=== PATIENT | female | born 2000 | race Caucasian/White ===

== ENCOUNTER 2023-05-24 09:05 | Emergency (ER) | payer OTHER, SELFPAY ==
--- NOTE | ~2023-05-24 | XR_ITS ---
EXAMINATION: XR chest 1V portable DATE: 05/24/2023 09:59 INDICATION: Left chest pain. TECHNIQUE: A single frontal view of the chest was obtained. COMPARISON: None. FINDINGS: There is no pneumonia, pleural effusion, or pneumothorax. The heart size is normal. IMPRESSION: 1. No acute cardiopulmonary disease. Reviewed, dictated and finalized at location A. INTEGRATION ARCHITECT
[2023-05-24 09:16] VITALS: BP 132/88; PULSE 83; RESP 18; O2SAT 98
--- NOTE | 2023-05-24 09:16 | ECG_ITS ---
Measurements Intervals [place] Rate: 91 P: 76 [place]: 129 QRS: 81 QRSD: 74 T: 56 QT: 323 QTc: 398 Interpretive Statements SINUS RHYTHM SEPTAL MYOCARDIAL INFARCTION , OF INDETERMINATE AGE [40+ ms Q WAVE IN V1/V2] NO PREVIOUS ECG AVAILABLE FOR COMPARISON Electronically Signed On 05-24-2023 13:50:01 ACCOUNT MAINTENANCE REPRESENTATIVE by Theron Pendleton M.D.
[2023-05-24 09:30] VITALS: BP 119/72; PULSE 83; RESP 26; O2SAT 100
--- NOTE | 2023-05-24 09:32 | ED.GENADULT ---
HPI - General Adult General Chief complaint: Back Pain/Injury Stated complaint: back/chest pain, high BP Time Seen by Provider: 05/24/23 09:16 Source: patient Mode of arrival: ambulatory Limitations: no limitations History of Present Illness HPI narrative: This is a 22-year-old female who presents to the ED with chief complaint sudden onset mid upper back pain that started this morning. Reports that this pain woke her up sleep around 5:30 a.m.. She states the pain is worsened with movement and with deeper breathing. Reports the pain starts in the back and wraps around the outside of the chest wall to the left anterior chest. Denies right-sided pain. It is specifically worse with certain movements. Denies any injuries, strenuous activity. Denies syncope, vomiting, shortness of breath. Denies numbness, weakness or any pain in the extremities. Patient states she is currently being worked up by a new primary doctor for high blood pressure that was seen on only 1 side. She was given amlodipine prescription. She was supposed to go to cardiology appointment today but missed due to this pain. Related Data Home Medications Medication Instructions Recorded Confirmed amlodipine 2.5 mg tablet 2.5 mg PO DAILY 05/24/23 Allergies Allergy/AdvReac Type Severity Reaction Status Date / Time No Known Allergies Allergy Verified 05/24/23 09:16 Review of Systems Review of Systems: All systems as dictated in HPI Exam Narrative: GENERAL: Well-appearing, well-nourished, and in no acute distress. HEAD: Normocephalic, atraumatic. EYES: PERRLA and EOMI. ENT: Nares clear, no rhinorrhea or epistaxis. Mucous membranes moist. Oropharynx without tonsillar hypertrophy exudate or other lesions. NECK: Supple. No adenopathy or masses. CHEST: No respiratory distress. Clear to auscultation. No wheezes rales or rhonchi HEART: Regular rate and rhythm. No murmur heard. Normal peripheral pulses. ABDOMEN: Soft, nontender, nondistended, normal active bowel sounds. MSK: Normal range of motion. No edema. SKIN: Warm, dry, no rash. NEURO: Alert and oriented x3. No focal deficits. PSYCH: Normal mood and affect. Course Course Emergency Course: Slightly improved after Toradol. Pain continues to be reproducible with certain movements. Vital Signs Vital signs: Vital Signs Pulse Rate 83 05/24/23 09:16 Respiratory Rate 18 05/24/23 09:16 Blood Pressure 132/88 05/24/23 09:16 Pulse Oximetry 98 05/24/23 09:16 Oxygen Delivery Room Air 05/24/23 09:16 Pulse Rate 70 05/24/23 11:10 Respiratory Rate 16 05/24/23 11:10 Blood Pressure 113/74 05/24/23 11:10 Pulse Oximetry 99 05/24/23 11:10 Oxygen Delivery Room Air 05/24/23 09:16 Medical Decision Making MDM Narrative Medical decision making narrative: This is a 22-year-old female who presents to the ED with chief complaint of back pain radiating to the chest beginning this morning. Vitals are normal. Exam largely unremarkable. No tenderness to the back or chest wall. EKG shows normal sinus rhythm. Lab work unremarkable. D-dimer normal. Troponin negative. Chest x-ray: 1. No acute cardiopulmonary disease. . Symptoms consistent with musculoskeletal cause of pain. Toradol somewhat helpful here. Pt will be discharged in stable condition. Return precautions given and supportive measures discussed. Pt is understanding and agreeable with plan for discharge and follow-up with PCP. Vital Signs Vital Signs: Vital Signs Pulse Rate 83 05/24/23 09:16 Respiratory Rate 18 05/24/23 09:16 Blood Pressure 132/88 05/24/23 09:16 Pulse Oximetry 98 05/24/23 09:16 Oxygen Delivery Room Air 05/24/23 09:16 Pulse Rate 70 05/24/23 11:10 Respiratory Rate 16 05/24/23 11:10 Blood Pressure 113/74 05/24/23 11:10 Pulse Oximetry 99 05/24/23 11:10 Oxygen Delivery Room Air 05/24/23 09:16 Lab Data 05/24/23 09:44 05/24/23 09
[2023-05-24 09:45] VITALS: BP 125/77; PULSE 92; RESP 33; O2SAT 99
[2023-05-24 09:46] VITALS: BP 124/75; PULSE 74; RESP 22; O2SAT 100
[2023-05-24 09:49] LABS: Basophils Percent Auto 0.7 % (0.2-1.2); Eosinophils Absolute Auto 0.1 K/mm3 (0-0.3); Eosinophils Percent Auto 1.6 % (0-4.4); Hematocrit 40.4 % (37.0-47.0); Hemoglobin 13.1 g/dL (12.0-15.0); Immature Granulocyte Absolute 0.01 K/mm3 (0.00-0.031); Immature Granulocyte Percent A 0.2 % (0-0.5); Lymphocytes Absolute Auto 1.26 K/mm3 (0.9-3.2); Lymphocytes Percent Auto 22.2 % (18.3-44.2); Mean Corpuscular HGB Conc 32.4 g/dl (32-36); Mean Corpuscular Hemoglobin 31.4 pg (26-34); Mean Corpuscular Volume 96.9 fl (80-100); Mean Platelet Volume 9.9 fl (7.4-10.4); Monocytes Absolute Auto 0.4 K/mm3 (0.1-0.6); Monocytes Percent Auto 7.2 % (2.6-8.5); Neutrophils Absolute Auto 3.9 K/mm3 (1.3-6.7); Neutrophils Percent Auto 68.1 % (45.5-73.1); Platelet Count Result 232 k/mm3 (150-375); Red Blood Count 4.17 M/mm3 (4.2-5.4); Red Cell Distribution Width 12.3 % (11.5-14.5); White Blood Count 5.7 K/mm3 (4.5-10.0)
[2023-05-24 10:00] LABS: Alanine Aminotransferase 13 U/L (6-35); Albumin Level 4.3 g/dL (3.5-5.1); Alkaline Phosphatase 58 U/L (38-126); Anion Gap 4 mmol/L (8-16); Aspartate Amino Transferase 19 U/L (14-36); Bilirubin,Total 0.9 mg/dL (0.2-1.3); Blood Urea Nitrogen 7 mg/dL (7-17); Calcium 9.4 mg/dL (8.4-10.2); Carbon Dioxide 26 mmol/L (22-30); Chloride 108 mmol/L (98-107); Estimated CRCL calculation 122 ml/min; Estimated Glomerular Filt Rate > 60; Glucose 95 mg/dL (65-110); Potassium 4.2 mmol/L (3.4-5.0); Sodium 138 mmol/L (137-145)
[2023-05-24 10:05] LABS: D Dimer < 0.22 ug/mL (<0.48)
[2023-05-24 10:11] LABS: Troponin I < 0.012 ng/mL (0.000-0.034)
[2023-05-24] MEDS: KETOROLAC 30 MG/ML VIAL (*BKC) IV PUSH (10:30)
[2023-05-24 11:00] VITALS: BP 113/74; PULSE 70; RESP 20; O2SAT 98
[2023-05-24 11:10] VITALS: BP 113/74; PULSE 70; RESP 16; O2SAT 99
== END 2023-05-24 11:10 | disposition home or self-care (01) ==
PROVIDERS: Emergency Provider Physician Assistant; PCP Family Medicine
DX: M54.9 Dorsalgia, unspecified (principal); I10 Essential (primary) hypertension
CPT/HCPCS: 36415; 71045; 80053; 84484; 85025; 85380; 93005; 96374; 99284; J1885

== ENCOUNTER 2023-05-27 16:26 | Outpatient (CLI) | payer OTHER, SELFPAY ==
--- NOTE | ~2023-05-27 | CT_ITS ---
EXAMINATION:CT diagnostic chest wo con DATE: 05/27/2023 16:52 INDICATION: Pleurisy. Left chest pain. TECHNIQUE: Computed tomography (CT) of the chest was performed without intravenous contrast. Automate d exposure control and iterative reconstruction technique were employed. The dose-length product (DLP ) was 146.20 mGy-cm. COMPARISON: Chest single view 05/24/2023 FINDINGS: There is no pneumonia or pleural effusion. The heart size is normal. No pericardial effusio n. The bones are unremarkable. IMPRESSION: 1. Normal chest. Reviewed, dictated and finalized at location E. [employer] IMPRESSION: 1. Normal chest.
== END 2023-05-27 16:27 | disposition home or self-care (01) ==
LOC: ANHIMG 16:27
PROVIDERS: PCP Family Medicine; Visit Provider Family Medicine
DX: R06.02 Shortness of breath (principal); R09.1 Pleurisy
CPT/HCPCS: 71250